=== PATIENT | female | born 1990 | race Caucasian/White ===

== ENCOUNTER 2016-11-10 07:36 | Inpatient (IN) | payer OTHER ==
[2016-11-10] MEDS ORDERED: Dinoprostone* 10 MG VAG.SUPP VAGINAL ONE ×2 (09:25→22:51)
[2016-11-10 09:40] LABS: Hematocrit 41 % (35-47); Hemoglobin 13.9 g/dl (12.0-16.0); Mean Corpuscular HGB Conc 34 g/dl (31-36); Mean Corpuscular Hemoglobin 32 pg (27-31); Mean Corpuscular Volume 96 fL (80-97); Mean Platelet Volume 9 um3 (7.4-10.4); Red Blood Count 4.32 10^6/ul (4.0-5.4); Red Cell Distribution Width 13 % (10.5-15)
[2016-11-10 09:50] LABS: Albumin 3.2 g/dL (3.2-5.2); BUN/Creatinine Ratio 15.9 (8-20); Calcium 8.8 mg/dL (8.6-10.3); EGFR African American 131.3 (>60); EGFR Non-African American 102.1 (>60); Potassium 4.3 mmol/L (3.5-5.0); Total Bilirubin 0.4 mg/dL (0.2-1.0); Total Protein 6.2 g/dL (6.4-8.9); Uric Acid 5.6 mg/dL (2.3-6.6)
[2016-11-11] MEDS ORDERED: ceFOXitin 2 GM IVPREMIX* 2 GM/50 ML BAG IVPB ONE (00:03)
[2016-11-11] MEDS ORDERED: Sodium Citrate/Citric Acid* 15 ML UDC PO ONE (00:04)
[2016-11-11] MEDS ORDERED: Sodium Citrate/Citric Acid* 15 ML UDC ONE (00:04)
[2016-11-11] MEDS ORDERED: ceFOXitin 2 GM IVPREMIX* 2 GM/50 ML BAG ONE (00:04)
[2016-11-11] MEDS ORDERED: OXYTOCIN* 10 UNITS/ML 1 ML VIAL ONE ×2 (00:19→01:08)
[2016-11-11] MEDS ORDERED: Morphine PF AMP (0.5MG/ML)* 5 MG/10 ML AMP ONE (00:19)
[2016-11-11] MEDS ORDERED: Ondansetron INJ* 2 MG/ML VIAL ONE (00:19)
[2016-11-11] MEDS ORDERED: Dexamethasone IV* 4 MG/ML 1 ML (4 MG) ONE (00:19)
[2016-11-11] MEDS ORDERED: Ondansetron INJ* 2 MG/ML VIAL IV PRN (01:13)
[2016-11-11] MEDS ORDERED: Ketorolac INJ* 30 MG/ML 1 ML VIAL IV PRN (01:13)
[2016-11-11] MEDS ORDERED: Naloxone* 0.4 MG/ML 1 ML VIAL IV PRN (01:13)
[2016-11-11] MEDS ORDERED: oxyCODONE/Acetamin 5/325 MG* TAB PO PRN ×4 (01:13→17:00)
[2016-11-11] MEDS ORDERED: fentaNYL* 50 MCG/ML 2 ML VIAL (100 MCG VIAL) IV PRN (01:13)
[2016-11-11] MEDS ORDERED: Nalbuphine* 20 MG/ML 1 ML VIAL IV PRN ×2 (01:13)
[2016-11-11] MEDS ORDERED: fentaNYL* 50 MCG/ML 2 ML VIAL (100 MCG VIAL) ONE (01:17)
[2016-11-11] MEDS ORDERED: Dibucaine 1% 28.35 GM TUBE PR PRN (01:59)
[2016-11-11] MEDS ORDERED: Witch Hazel PAD* JAR TOPICAL PRN (01:59)
[2016-11-11] MEDS ORDERED: Glycerin ADULT SUPP PR PRN (01:59)
[2016-11-11] MEDS ORDERED: Oxytocin in LR* 20 UNITS/1,000 ML BAG IVPB SCH (02:00)
[2016-11-11] MEDS: Ibuprofen TAB* 600 MG PO SCH ×4 (02:41→22:25)
[2016-11-11] MEDS: Simethicone CHEW TAB* 80 MG PO SCH ×3 (09:22→22:25)
[2016-11-11] MEDS: Docusate CAP* 100 MG PO SCH ×3 (09:22→22:25)
[2016-11-11] MEDS: Acetaminophen TAB* 325 MG PO PRN ×2 (15:59→22:26)
--- NOTE | 2016-11-12 04:01 | OP ---
AMENDED REPORT NOW INCLUDES DATE OF OPERATION - ESIGNED BEFORE ADJUSTMENT * DATE OF OPERATION: 11/11/16 - ROOM #[id number] DATE OF : 88. SURGEON: Dr. Parra. SHOW WORKER: Dr. Abdi. ANESTHESIOLOGIST: Dr. Martinez. ANESTHESIA: Spinal. PRE-OP DIAGNOSES: 37 weeks gestation, mild preeclampsia, category 2 heart tracing, remote from delivery. POST-OP DIAGNOSES: 37 weeks gestation, mild preeclampsia, category 2 heart tracing, remote from delivery. OPERATIVE PROCEDURE: Primary low-flap transverse section via Pfannenstiel. Uterus closed in 2 layers. ESTIMATED BLOOD LOSS: 600 cc. URINE OUTPUT: Clear urine. FINDINGS: Viable male infant in a vertex presentation. Clear amniotic fluid. Apgars were 8 and 9; 5 pounds 12 ounces. There was an anterior placenta. 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 The was in the right uterus. Normal appearing right ovary. Normal appearing left ovary. Normal appearing fallopian tubes bilaterally. COMPLICATIONS: None. COUNTS: Sponge, lap, and needle count correct x2, CONDITION: The patient tolerated the procedure well and was brought to the recovery room, awake and in stable condition. DESCRIPTION OF PROCEDURE: The patient was brought to the operating room. When spinal anesthesia was found to be adequate, the patient was prepped and draped in the usual sterile fashion in the dorsal supine position with a leftward tilt. A Hunt catheter had been placed under sterile conditions after the spinal was placed. The patient was prepped and draped in the usual sterile fashion in the dorsal supine position with a leftward tilt. Time-out was performed. The spinal was tested with the Allis clamps and found to be adequate. A Pfannenstiel skin incision was made approximately 2 cm above the symphysis pubis. This was carried down to the underlying layer of fascia. The fascia was incised in the midline and the fascial incision was extended laterally with the Stahl scissors. The fascia was grasped with the Juanpablo clamps and the rectus muscle was dissected using sharp and blunt dissection. The rectus muscle was in the midline. The peritoneum was identified, tented up, and entered bluntly. The peritoneal incision was extended bluntly. The bladder blade was inserted. The vesicouterine peritoneum was identified and a bladder flap was created. The bladder blade was reinserted. A low flap transverse incision was made on the uterus to the level of the membranes. The lower uterine segment was thick. The membranes were ruptured. The was delivered atraumatically from the vertex presentation. The cord was milked. The cord was clamped and cut and the was handed off to the waiting clinical trial manager, Dr. Butler. Apgars were 8 and 9. The placenta was delivered. Both uteri were exteriorized and they were fused in the middle. The right uterus was cleared off all clots and debris. The uterine incision was repaired using 0 Vicryl in a running locked fashion. A second layer of the same suture was used to imbricate and obtain excellent hemostasis. The ovaries and fallopian tubes were examined and found to be normal. The abdomen and pelvis were copiously irrigated with warm normal saline. The uterine incision was again examined and found to be hemostatic. Both uteri were returned to the pelvis. The incision was once again examined and found to be hemostatic. The peritoneum was closed with 3-0 Polysorb. The subfascial layer was examined and found to be hemostatic. The fascia was closed using 0 Vicryl. The subcutaneous tissue was irrigated. Any small bleeders were cauterized with the Bovie. The subcutaneous tissue was reapproximated with 3 interrupted sutures of 3-0 Vicryl. The skin was closed with 4-0 Monocryl in a subcuticular fashion. Steri-Strips were applied. A pressure dressing was applied and the patient was brought to recovery room awake and in stable condition. [id number]/[facility] #: [id number] ORIGINAL ESIGNED DATE/TIME: 11/12/161346 MOHAMUD
[2016-11-12] MEDS: Acetaminophen TAB* 325 MG PO PRN ×4 (04:21→20:18)
[2016-11-12] MEDS ORDERED: Lidocaine 1% MPF* 2 ML VIAL ONE (05:02)
[2016-11-12] MEDS: Ibuprofen TAB* 600 MG PO PRN ×2 (05:29→20:18)
[2016-11-12 08:15] LABS: Hematocrit 33 % (35-47); Hemoglobin 11.5 g/dl (12.0-16.0); Mean Corpuscular HGB Conc 35 g/dl (31-36); Mean Corpuscular Hemoglobin 33 pg (27-31); Mean Corpuscular Volume 95 fL (80-97); Mean Platelet Volume 8 um3 (7.4-10.4); Red Blood Count 3.51 10^6/ul (4.0-5.4); Red Cell Distribution Width 13 % (10.5-15); White Blood Count 10.4 10^3/ul (3.5-10.8)
[2016-11-12] MEDS ORDERED: Ferrous Gluconate TAB* 324 MG TAB PO SCH (09:00)
[2016-11-12] MEDS: Simethicone CHEW TAB* 80 MG PO SCH ×4 (09:33→21:00)
[2016-11-12] MEDS: Docusate CAP* 100 MG PO SCH ×3 (09:33→20:19)
[2016-11-13] MEDS: Ibuprofen TAB* 600 MG PO PRN ×4 (04:32→23:31)
[2016-11-13] MEDS: Acetaminophen TAB* 325 MG PO PRN ×4 (04:32→23:45)
[2016-11-13] MEDS: Docusate CAP* 100 MG PO SCH ×3 (08:48→23:31)
[2016-11-13] MEDS: Simethicone CHEW TAB* 80 MG PO SCH ×4 (08:48→23:30)
[2016-11-14] MEDS: Ibuprofen TAB* 600 MG PO PRN ×2 (05:56→12:00)
[2016-11-14] MEDS: Acetaminophen TAB* 325 MG PO PRN ×2 (05:56→11:59)
[2016-11-14 07:45] VITALS: BP 97/68
[2016-11-14] MEDS: Docusate CAP* 100 MG PO SCH (08:16)
[2016-11-14] MEDS: Simethicone CHEW TAB* 80 MG PO SCH ×2 (08:16→11:59)
== END 2016-11-14 12:22 | disposition home or self-care (01) | DRG 766 ==
LOC: MCHOBOUT 07:36 → MCHOB 08:23
PROVIDERS: ADMIT Obstetrics & Gynecology; ATTEND Obstetrics & Gynecology
PROC: 10D00Z1 Extraction of Products of Conception, Low, Open Approach (ICD-10-PCS; principal; 2016-11-11 00:29)
DX: O14.04 Mild to moderate pre-eclampsia, complicating childbirth (principal); O34.593 Maternal care for other abnormalities of gravid uterus, third trimester; O76 Abnormality in fetal heart rate and rhythm complicating labor and delivery; Q51.10 Doubling of uterus with doubling of cervix and vagina without obstruction; Z3A.37 37 weeks gestation of pregnancy; Z37.0 Single live birth
CPT/HCPCS: 36415; 80053; 84550; 85025; 86850; 86900; 86901; A9270-GY; J0694; J1100; J2405; J2590; J3010

== ENCOUNTER 2017-07-07 17:44 | Emergency (ER) | payer OTHER ==
[2017-07-07 18:34] VITALS: BP 136/98
--- NOTE | 2017-07-07 19:14 | UC ---
FLU HPI - HPI Summary HPI Summary: 27 yo WF c/o f/c/bodyaches/PRASAD since this AM. Pt just had the flu last week With a GI bug and was treated with Tamiflu and although similar to previous sx of Flu , it seems a bit milder per pt, but pt c/o worsening cough with sputum- yellow green with pleuritic CP - History of Current Complaint Chief Complaint: UCRespiratory Stated Complaint: URI Time Seen by Provider: 07/07/17 18:51 Hx Obtained From: Patient Hx Last Menstrual Period: 2015; breast feeding Onset/Duration: Lasting Days Severity Currently: Mild Pain Intensity: 5 Associated Signs & Symptoms: Positive: Fever, Myalgia, Sore Throat, Headache Related Hx: Possible Flu/Infectious Exposure - Allergy/Home Medications Allergies/Adverse Reactions: Allergies Allergy/AdvReac Type Severity Reaction Status Date / Time MS Latex [Latex] Allergy Severe Rash Verified 11/10/16 08:04 latex Allergy Rash Verified 07/07/17 18:36 PMH/Surg Hx/FS Hx/Imm Hx Previously Healthy: Yes - Surgical History Surgical History: Yes Surgery Procedure, Year, and Place: 2011 - endometriosis surgery, tonsillectomy , - Social History Alcohol Use: Rare Substance Use Type: None Substance Use Comment - Amount & Last Used: none while Smoking Status (MU): Never Smoked Tobacco Have You Smoked in the Last Year: No - Immunization History Most Recent Influenza Vaccination: fall 2015 Most Recent Pneumonia Vaccination: never Review of Systems Constitutional: Fever, Chills, Fatigue Skin: Negative Eyes: Negative ENT: Sore Throat Respiratory: Cough - with sputum- new after bout of influenza Cardiovascular: Negative Gastrointestinal: Negative Genitourinary: Negative Motor: Negative Neurovascular: Negative Musculoskeletal: Myalgia Neurological: Negative Psychological: Negative Is Patient Immunocompromised?: No All Other Systems Reviewed And Are Negative: Yes Physical Exam Triage Information Reviewed: Yes Appearance: No Pain Distress Vital Signs: Initial Vital Signs Temp 37.3 C 07/07/17 18:29 Pulse 115 07/07/17 18:29 Resp 16 07/07/17 18:29 BP 136/98 07/07/17 18:29 Pulse Ox 99 07/07/17 18:29 Vital Signs Reviewed: Yes Eye Exam: Normal ENT Exam: Normal Dental Exam: Normal Neck exam: Normal Neck: Positive: 1 Respiratory Exam: Normal Respiratory: Positive: Lungs clear, Other: - coarse BS B/L Cardiovascular Exam: Normal Abdominal Exam: Normal Musculoskeletal Exam: Normal Neurological Exam: Normal Psychological Exam: Normal Skin Exam: Normal Flu Course/Dx - Course Course Of Treatment: Rapid flu negative but concerned about secondary bacterial infection - bronchitis- states cough is productive with pleuritic CP- Z-magaly - Differential Dx/Diagnosis Differential Diagnosis/HQI/PQRI: Bronchitis, Upper Respiratory Infection Provider Diagnoses: post-influenza bronchitis Discharge - Discharge Plan Condition: Stable Disposition: HOME Prescriptions: Azithromycin TAB* [Zithromax TAB (Z-MAGALY) 250 mg #6 tabs] 2 tab PO .TODAY, THEN 1 DAILY #1 magaly Patient Education Materials: Viral Syndrome (ED) Referrals: Pramod Gordon MD [Primary Care Provider] - Additional Instructions: rest, hydrate, over counter analgesics
== END 2017-07-07 19:35 | disposition home or self-care (01) ==
LOC: UCEAST 17:44
DX: J20.8 Acute bronchitis due to other specified organisms (principal)
CPT/HCPCS: 87502; 99212; G0463

== ENCOUNTER 2019-05-11 07:03 | Emergency (ER) | payer OTHER ==
[2019-05-11 07:14] VITALS: BP 120/66
--- NOTE | 2019-05-11 07:20 | UC ---
Nausea/Vomiting/Diarrhea HPI - HPI Summary HPI Summary: Patient presents to urgent care for evaluation of vomiting that started last night. Patient states her 8 PM she started having emesis nonbilious nonbloody. Patient states she threw up multiple times in the night. Patient denies fevers or chills. No nausea vomiting. Patient states she did have some episodes of diarrhea this morning. No blood or black emesis either. No back pain. No dysuria. Patient states she currently has her menses and is not concerned she is . Upon further conversation, patient notes she had unprotected anal intercourse with ejaculation yesterday around 5:00. Patient states she is not particularly well. Patient took nothing else was inserted in her vaginal rectal area. Patient denies any concern for injury or trauma. Patient states she is concerned she contracted sexually transmitted infections as well as vomiting. Patient does not know if her partner had any symptoms. Patient's concerned that she could have gotten something this is why she is vomiting. Patient does have a 2-1/2-year-old child who is not sick. Patient states she was not treated inappropriately by her partner. Patient's medications are Atrovent in the EMR by triage is reviewed this visit. - History of Current Complaint Chief Complaint: UCGI Stated Complaint: VOMITING Time Seen by Provider: 05/11/19 07:19 Hx Obtained From: Patient - the aortic Hx Last Menstrual Period: 05/09/19 Onset/Duration: Sudden Onset Severity Currently: None Pain Intensity: 0 - Allergies/Home Medications Allergies/Adverse Reactions: Allergies Allergy/AdvReac Type Severity Reaction Status Date / Time latex Allergy Rash Verified 05/11/19 07:14 PMH/Surg Hx/FS Hx/Imm Hx Previously Healthy: Yes - Surgical History Surgical History: Yes Surgery Procedure, Year, and Place: 2011 - endometriosis surgery, tonsillectomy , - Family History Known Family History: Positive: Non-Contributory - Social History Occupation: Employed Full-time - Customer Business Manager Alcohol Use: Occasionally Substance Use Type: None Substance Use Comment - Amount & Last Used: none while Smoking Status (MU): Never Smoked Tobacco Have You Smoked in the Last Year: No - Immunization History Most Recent Influenza Vaccination: fall 2015 Most Recent Pneumonia Vaccination: never Review of Systems All Other Systems Reviewed And Are Negative: Yes Constitutional: Positive: Negative Skin: Positive: Negative Gastrointestinal: Positive: Vomiting, Diarrhea. Negative: Abdominal Pain Genitourinary: Positive: Negative, Other - Current menses. Negative: Dysuria, Hematuria, Frequency, Urgency, Abnormal Bleeding Physical Exam - Summary Physical Exam Summary: Vital Signs Reviewed: Yes A+Ox3, no distress Eyes: Conjunctiva Clear, JOSEPH. EOM intact and full ENT: Hearing grossly normal TM x 2 clear, mmmoist uvula midline, no exudate, no erythema Neck: Positive: Supple Respiratory: Positive: No respiratory distress, No accessory muscle use + CTA throughout no w/r Cardiovascular: RRR nl s1, s2 no m/r CBT <2 sec abd soft + BS nt/nd no guarding, no distension, no cva Musculoskeletal Exam: SOLIS x 4 without difficulty Strength Intact, ROM Intact Neurological: Positive: Alert, + sensation throughout Psychological: Positive: Normal Response To examiner Skin: Positive: no rash, no ecchymosis Triage Information Reviewed: Yes Vital Signs: Initial Vital Signs Temp 97.8 F 05/11/19 07:08 Pulse 81 05/11/19 07:08 Resp 18 05/11/19 07:08 BP 120/66 05/11/19 07:08 Pulse Ox 99 05/11/19 07:08 Re-Evaluation - Re-Evaluation First Eval Comment: Patient states she feels better following zofran - patient drinking water. Review with patient labs tests and follow-up. Understanding and agreement. Strict return precautions discussed. Pt comfortable and in agreement with plan Naus/Vom/Diarrhea Course/Dx - Course Course Of Treatment: Patient presents to urgent care for evaluation of vomiting that started last night. Patient also with some episodes of diarrhea this point. Nonbloody nonbilious. No fever. No abdominal pain. Patient inquired whether she could' ve contracted a sexually transmitted infection of anal intercourse yesterday prior to symptoms starting. On exam vital signs are stable. Patient's lips are dry but mucous membranes are moist and mildly pasty. abd exam is soft non- concerning. I had a long discussion with patient regarding sexual health. Patient states she was in the consensual relationship yesterday. Will give Zofran. We'll check urine for ketones as well as . I discussed with STI with pt. Would like testing for gonorrhea and chlamydia. She will to be tested for this both in her urine and her anus patient denied testing for HIV, syphilis and hepatitis C. After explaining this would be to past exposure not yesterday. Patient expressed comfort and feeling better after having talked. Reassess following Zofran - Differential Dx/Diagnosis Provider Diagnosis: Vomiting, Screen for sexually transmitted diseases Condition At Discharge: Stable Discharge ED - Sign-Out/Discharge Documenting (check all that apply): Patient Departure All imaging exams completed and their final reports reviewed: No Studies - Discharge Plan Condition: Stable Disposition: HOME Prescriptions: Ondansetron ODT TAB* [Zofran 4 MG Odt TAB*] 4 mg PO Q4H PRN #10 tab.odt PRN Reason: Nausea Patient Education Materials: Acute Nausea and Vomiting (ED) Referrals: Pramod Gordon MD [Primary Care Provider] - Additional Instructions: -For the first 6 hours, eat and drink clears (water, [place], soup broth, jello, popsicles, Gatorade). If you tolerate this okay, add bland foods such as dry toast, scrambled eggs, crackers. Wait until you are feeling better for 24 hours before eating spicy food, acidic food, tomato based food, fried food. - Okay to take zofran as prescribed for nausea - Okay to alternate ibuprofen (Advil, Motrin) and Tylenol (acetaminophen) every 3 hours for pain or fever. Take with food. Do NOT take for more than 4-5 days. - If you develop abdominal pain, back pain, uncontrolled vomiting or other concerns - it is recommended you go to the emergency department for further evaluation and treatment - As discussed, your samples have been sent for additional testing. If you need treatment, you will receive a call from a care manufacturing team leader. This may take 3 -4 days Contact your doctor or return with questions or concerns - Billing Disposition and Condition Condition: STABLE Disposition: Home
[2019-05-11] MEDS ORDERED: Ondansetron ODT TAB* 4 MG PO ONE (07:32)
[2019-05-13 13:49] LABS: Chlamydia trachomatis NAA Negative (Negative); Neisseria gonorrhoeae (GC) NAA Negative (Negative)
[2019-05-13 19:55] LABS: C. trach Amplified RNA Negative (Negative); N Gonorr Amplified RNA Negative (Negative); Source RECTAL
== END 2019-05-11 08:20 | disposition home or self-care (01) ==
LOC: UCEAST 07:03
DX: Z11.3 Encounter for screening for infections with a predominantly sexual mode of transmission (principal); R11.10 Vomiting, unspecified; R19.7 Diarrhea, unspecified; Z91.040 Latex allergy status
CPT/HCPCS: 81003; 84702; 87491; 87591; 99212; A9270-GY; G0463